=== PATIENT | female | born 1990 | race Caucasian/White ===

== ENCOUNTER → 2016-09-24 | Outpatient (REF) | payer BC | LOC: M LAB REF 15:04 | PROVIDERS: ATTEND Physician Assistant | DX: R50.9 Fever, unspecified (principal) ==

== ENCOUNTER → 2016-10-26 | Outpatient (REF) | payer BC | LOC: M LAB REF 12:30 | PROVIDERS: ATTEND Physician Assistant | DX: R50.9 Fever, unspecified (principal) ==

== ENCOUNTER 2017-07-18 20:53 | Emergency (ER) | payer BC ==
[~2017-07-18] VITALS: Ht 160 cm; Wt 57.7 kg
[~2017-07-18 20:53] MED LIST: METO5TAB2; ONDA4TAB6; PREN1CAP8 PO
[2017-07-18] MEDS ORDERED: NS 1,000 ML IV ONE (21:15)
[2017-07-18 21:41] LABS: BASO % 0.4 % (0.0-1.0); EOS # 0.1 10^3/uL (0.0-0.50); EOS % 2.1 % (0.0-3.0); IMMATURE GRANULOCYTE % 0.3 % (0-0); LYMPH # 1.4 10^3/uL (1.5-6.5); LYMPH % 20.6 % (24.0-44.0); MEAN CORPUSCULAR HEMOGLOBIN 29.3 pg (27.0-33.0); MEAN CORPUSCULAR HGB CONC 34.1 g/dl (32.0-36.5); MEAN CORPUSCULAR VOLUME 85.7 fl (80.0-96.0); MONO # 0.5 10^3/uL (0.0-0.8); MONO % 7.8 % (0.0-5.0); NEUTROPHILS # 4.7 10^3/uL (1.8-7.7); NEUTROPHILS % 68.8 % (36.0-66.0); PLATELET COUNT, AUTOMATED 201 10^3/uL (150-450); WHITE BLOOD COUNT 6.8 10^3/uL (4.0-10.0)
[2017-07-18 22:03] LABS: ANION GAP 9 MEQ/L (8-16); BLOOD UREA NITROGEN 11 MG/DL (7-18); CARBON DIOXIDE LEVEL 25 MEQ/L (21-32); CHLORIDE LEVEL 105 MEQ/L (98-107); CREATININE FOR GFR 0.59 MG/DL (0.55-1.02); GLOMERULAR FILTRATION RATE > 60.0 (>60); GLUCOSE, FASTING 80 MG/DL (70-105); SODIUM LEVEL 139 MEQ/L (136-145)
--- NOTE | 2017-07-18 22:10 | REPUSA ---
Clinical history: cramping. Findings: Real-time transabdominal ultrasound images of the pelvis were obtained. There is a single l daksha intrauterine . The crown rump length measures 7.7 cm. Abdominal circumference measures 6 .7 centimeters. Femur length measures 1.1 cm. Estimated weight is 70 g. heart rate measur es 153 bpm. There is no evidence of a subchorionic hemorrhage. There is no evidence of free fluid. Impression: 1. Single live intrauterine measuring 13 weeks 5 days, with estimated due date of 01/20/2018 .
[2017-07-18 23:07] VITALS: BP 123/63
== END 2017-07-18 23:50 | disposition home or self-care (01) ==
LOC: M ED 20:53
DX: O98.83 Other maternal infectious and parasitic diseases complicating the puerperium (principal); N89.8 Other specified noninflammatory disorders of vagina; Z3A.14 14 weeks gestation of pregnancy; Z87.891 Personal history of nicotine dependence; Z88.0 Allergy status to penicillin; Z88.1 Allergy status to other antibiotic agents

== ENCOUNTER → 2017-08-19 | Outpatient (CLI) | payer BC | LOC: M RAD 10:48 | DX: Z36.2 Encounter for other antenatal screening follow-up (principal) ==

== ENCOUNTER → 2017-09-08 | Outpatient (CLI) | payer BC | LOC: M RAD 10:03 | DX: Z34.82 Encounter for supervision of other normal pregnancy, second trimester (principal) ==

== ENCOUNTER 2017-09-14 01:11 | Outpatient (CLI) | payer BC | END 2017-09-14 02:19 | disposition home or self-care (01) | LOC: M LDO 01:11 | DX: O26.892 Other specified pregnancy related conditions, second trimester (principal); Z3A.22 22 weeks gestation of pregnancy; R10.2 Pelvic and perineal pain ==

== ENCOUNTER → 2017-09-19 | Outpatient (REF) | payer BC ==
[2017-09-19 20:22] LABS: INFLUENZA A AMPLIFICATION POSITIVE (NEGATIVE); INFLUENZA B AMPLIFICATION NEGATIVE (NEGATIVE); RSV AMPLIFICATION NEGATIVE (NEGATIVE)
== END ==
LOC: M LAB REF 18:58
DX: J11.1 Influenza due to unidentified influenza virus with other respiratory manifestations (principal)
CPT/HCPCS: 87631

== ENCOUNTER → 2017-10-16 | Outpatient (CLI) | payer BC | LOC: M RAD 08:07 | DX: Z36.2 Encounter for other antenatal screening follow-up (principal); Z3A.26 26 weeks gestation of pregnancy | CPT/HCPCS: 76816 ==

== ENCOUNTER → 2017-11-03 | Outpatient (CLI) | payer BC | LOC: M RAD 14:28 | DX: O36.5931 Maternal care for other known or suspected poor fetal growth, third trimester, fetus 1 (principal); Z3A.28 28 weeks gestation of pregnancy | CPT/HCPCS: 76819 ==

== ENCOUNTER → 2017-11-24 | Outpatient (CLI) | payer BC | LOC: M RAD 09:42 | DX: O36.5931 Maternal care for other known or suspected poor fetal growth, third trimester, fetus 1 (principal) | CPT/HCPCS: 76819 ==

== ENCOUNTER → 2017-12-01 | Outpatient (CLI) | payer BC | LOC: M RAD 09:59 | DX: O36.5931 Maternal care for other known or suspected poor fetal growth, third trimester, fetus 1 (principal); Z3A.33 33 weeks gestation of pregnancy | CPT/HCPCS: 76815 ==

== ENCOUNTER → 2017-12-08 | Outpatient (CLI) | payer BC | LOC: M RAD 10:16 | DX: O36.5931 Maternal care for other known or suspected poor fetal growth, third trimester, fetus 1 (principal) | CPT/HCPCS: 76815 ==

== ENCOUNTER → 2017-12-15 | Outpatient (CLI) | payer BC | LOC: M RAD 10:09 | DX: O36.5931 Maternal care for other known or suspected poor fetal growth, third trimester, fetus 1 (principal); Z3A.34 34 weeks gestation of pregnancy | CPT/HCPCS: 76819 ==

== ENCOUNTER 2017-12-17 14:47 | Outpatient (CLI) | payer BC | END 2017-12-17 17:00 | disposition home or self-care (01) | LOC: M LDO 14:47 | DX: Z36.89 Encounter for other specified antenatal screening (principal); Z3A.35 35 weeks gestation of pregnancy | CPT/HCPCS: 76815 ==

== ENCOUNTER → 2017-12-17 | Outpatient (CLI) | payer BC | LOC: M RAD 06:30 | DX: R10.11 Right upper quadrant pain (principal) | CPT/HCPCS: 76705 ==

== ENCOUNTER → 2017-12-22 | Outpatient (CLI) | payer BC | LOC: M RAD 10:05 | DX: O36.5931 Maternal care for other known or suspected poor fetal growth, third trimester, fetus 1 (principal) | CPT/HCPCS: 76815 ==

== ENCOUNTER → 2017-12-24 | Outpatient (REF) | payer BC | LOC: M LAB REF 16:57 | DX: Z34.83 Encounter for supervision of other normal pregnancy, third trimester (principal) ==

== ENCOUNTER → 2017-12-29 | Outpatient (CLI) | payer BC | LOC: M RAD 10:08 | DX: O36.5931 Maternal care for other known or suspected poor fetal growth, third trimester, fetus 1 (principal); Z36.89 Encounter for other specified antenatal screening; Z3A.36 36 weeks gestation of pregnancy | CPT/HCPCS: 76815 ==

== ENCOUNTER → 2018-01-06 | Outpatient (CLI) | payer BC | LOC: M RAD 10:03 | DX: O36.5931 Maternal care for other known or suspected poor fetal growth, third trimester, fetus 1 (principal); Z3A.38 38 weeks gestation of pregnancy | CPT/HCPCS: 76819 ==

== ENCOUNTER 2018-01-10 12:46 | Inpatient (IN) | payer BC ==
[2018-01-10] MEDS: ONDANSETRON 4 MG ORAL DISINTEGRATING TAB (Q0162 PER 1MG) SL (13:34)
[2018-01-10] MEDS: LR 1,000 ML IV (16:02)
[2018-01-10] MEDS: PROMETHAZINE INJ 25 MG/ML VIAL (J2550) IV (16:02)
[2018-01-10 16:31] LABS: HEMATOCRIT 34.6 % (36.0-47.0); MEAN CORPUSCULAR HEMOGLOBIN 26.6 pg (27.0-33.0); MEAN CORPUSCULAR HGB CONC 31.8 g/dl (32.0-36.5); MEAN CORPUSCULAR VOLUME 83.6 fl (80.0-96.0); PLATELET COUNT, AUTOMATED 172 10^3/uL (150-450); RED BLOOD COUNT 4.14 10^6/uL (4.00-5.40); RED CELL DISTRIBUTION WIDTH 13.2 % (11.5-14.5); WHITE BLOOD COUNT 12.6 10^3/uL (4.0-10.0)
[2018-01-10] MEDS ORDERED: LR 1,000 ML IV (16:47)
[2018-01-10] MEDS: VANCOMYCIN HCL 1,000 MG, VIAL MATE ADAPTER 1 EACH in D5W 250 ML IV (17:11)
[2018-01-10] MEDS ORDERED: FENTANYL 2MCG/ML ROPIVACAINE 0.2% IN 0.9% NACL 200ML IVBAG As Ordered (17:33)
[2018-01-10] MEDS ORDERED: EPIDURAL COMMENT XX (19:00)
[2018-01-10] MEDS ORDERED: NALOXONE INJ 0.4 MG/1 ML VIAL (J2310) IV (19:00)
[2018-01-10] MEDS ORDERED: REFRIGERATOR IV KEYS XX (19:00)
[2018-01-10] MEDS ORDERED: EPIDURAL/PCA KEYS XX (19:00)
[2018-01-10] MEDS ORDERED: diphenhydrAMINE INJ 50MG/ML VIAL (J1200) IV (19:00)
[2018-01-10] MEDS ORDERED: FENTANYL/ROPIVACAINE/NACL BAG 200 ML EPIDURAL (19:00)
[2018-01-10] MEDS ORDERED: ePHEDrine SULFATE 25 MG/5 ML(5MG/ML) SYRINGE IV (19:00)
[2018-01-10] MEDS ORDERED: LACTATED RINGER'S 1000 ML IV (19:00)
[2018-01-10] MEDS: ONDANSETRON 4MG/2ML VIAL (J2405) IV (21:39)
[2018-01-10] MEDS ORDERED: OXYTOCIN 30 UNITS IN 0.9% NaCl 500ML IV BAG (J2590) As Ordered (21:45)
[2018-01-10] MEDS ORDERED: ONDANSETRON 4MG/2ML VIAL (J2405) IV (21:45)
[2018-01-10] MEDS ORDERED: FAMOTIDINE 20 MG TAB As Ordered (21:55)
[2018-01-10] MEDS: FAMOTIDINE 20 MG TAB PO (22:13)
[2018-01-10] MEDS: LACTATED RINGER'S 1000 ML IV (22:14)
[2018-01-10] MEDS: OXYTOCIN DRIP 30 UNITS in APPROPRIATE DILUENT 1 EA IV (22:14)
[2018-01-11] MEDS ORDERED: LR 1,000 ML IV (03:29)
[2018-01-11] MEDS: OXYTOCIN DRIP 30 UNITS in APPROPRIATE DILUENT 1 EA IV (03:29)
[2018-01-11] MEDS ORDERED: DIBUCAINE 1% OINTMENT 30GM TOP (03:30)
[2018-01-11] MEDS ORDERED: PROMETHAZINE 25 MG TAB PO (03:30)
[2018-01-11] MEDS ORDERED: ONDANSETRON 4MG/2ML VIAL (J2405) IV (03:30)
[2018-01-11] MEDS ORDERED: DOCUSATE SODIUM 100 MG CAP PO (03:30)
[2018-01-11] MEDS: ACETAMINOPHEN 500 MG TAB PO ×2 (03:59→12:27)
[2018-01-11] MEDS: IBUPROFEN 800 MG TAB PO ×3 (06:05→21:54)
[2018-01-11] MEDS: PRENATAL VITAMINS CHEWABLE TABLET PO (10:28)
[2018-01-11] MEDS: MEASLES,MUMPS,RUBELLA VACCINE INJ (MMR-II) (90707) SC (13:12)
[2018-01-11] MEDS: RHOGAM 300 MCG (1500 IU) INJ (J2790) IM (13:12)
[2018-01-12] MEDS: PRENATAL VITAMINS CHEWABLE TABLET PO (07:58)
[2018-01-12] MEDS: IBUPROFEN 800 MG TAB PO (07:58)
== END 2018-01-12 10:02 | disposition home or self-care (01) | DRG 560 ==
LOC: M LDO 12:46 → M OBS 01-11 05:55 → M LDI 16:42
PROVIDERS: Obstetrics & Gynecology
PROC: 10E0XZZ Delivery of Products of Conception, External Approach (ICD-10-PCS; principal; 2018-01-11)
PROC: 0HQ9XZZ Repair Perineum Skin, External Approach (ICD-10-PCS; 2018-01-11)
DX: O34.211 Maternal care for low transverse scar from previous cesarean delivery (principal); O99.824 Streptococcus B carrier state complicating childbirth; Z37.0 Single live birth; Z3A.39 39 weeks gestation of pregnancy; Z88.0 Allergy status to penicillin; Z88.1 Allergy status to other antibiotic agents; O70.0 First degree perineal laceration during delivery

== ENCOUNTER → 2019-05-14 | Outpatient (REF) | payer BC ==
[~2019-05-14] MED LIST changes: +COLA100C5 PO; +IBUP-1114 PO; +MAALSUS20 PO; +MAPA500T2 PO; +METO5TAB2 PO; +PYRI25TA2 PO; +ZANT150T15 PO; +ZITH250T PO
== END ==
LOC: M LAB REF 16:51
PROVIDERS: ATTEND Advanced Practice Midwife
DX: Z12.4 Encounter for screening for malignant neoplasm of cervix (principal)

== ENCOUNTER 2019-06-06 06:58 | Emergency (ER) | payer BC ==
[~2019-06-06] VITALS: Ht 160 cm; Wt 68.7 kg
[~2019-06-06 06:58] MED LIST changes: -METO5TAB2 PO; -PYRI25TA2 PO
[2019-06-06] MEDS ORDERED: METO5TAB2 PO (07:08)
[2019-06-06] MEDS ORDERED: PYRI25TA2 PO (07:08)
[2019-06-06] MEDS ORDERED: NS 1,000 ML IV ONE (07:30)
[2019-06-06 07:36] LABS: BASO % 0.6 % (0.0-1.0); EOS # 0.3 10^3/uL (0.0-0.5); LYMPH # 1.4 10^3/uL (1.5-5.0); LYMPH % 26.3 % (24.0-44.0); MEAN CORPUSCULAR HEMOGLOBIN 30.3 pg (27.0-33.0); MEAN CORPUSCULAR HGB CONC 33.3 g/dl (32.0-36.5); MEAN CORPUSCULAR VOLUME 90.9 fl (80.0-96.0); MONO # 0.6 10^3/uL (0.0-0.8); MONO % 12.3 % (0.0-5.0); NEUTROPHILS # 2.9 10^3/uL (1.5-8.5); NEUTROPHILS % 55.6 % (36.0-66.0); PLATELET COUNT, AUTOMATED 183 10^3/uL (150-450); RED BLOOD COUNT 4.62 10^6/uL (4.00-5.40); WHITE BLOOD COUNT 5.2 10^3/uL (4.0-10.0)
[2019-06-06 08:00] LABS: ALBUMIN 3.8 GM/DL (3.2-5.2); ALT/SGPT 39 U/L (12-78); BILIRUBIN,TOTAL 0.3 MG/DL (0.2-1.0); BLOOD UREA NITROGEN 10 MG/DL (7-18); CALCIUM LEVEL 8.6 MG/DL (8.5-10.1); CARBON DIOXIDE LEVEL 24 MEQ/L (21-32); CHLORIDE LEVEL 111 MEQ/L (98-107); CREATININE FOR GFR 0.73 MG/DL (0.55-1.30); GLOMERULAR FILTRATION RATE > 60.0 (>60); GLUCOSE, FASTING 100 MG/DL (70-100); POTASSIUM SERUM 4.4 MEQ/L (3.5-5.1); SODIUM LEVEL 141 MEQ/L (136-145); TOTAL PROTEIN 6.9 GM/DL (6.4-8.2)
[2019-06-06 08:52] LABS: HCG, SERUM QUANTITATIVE 2537 MIU/ML
[2019-06-06 09:39] VITALS: BP 110/59
--- NOTE | 2019-06-06 09:43 | REP ---
FIRST TRIMESTER ULTRASOUND: Real-time sonographic evaluation of pelvis performed utilizing transabdominal and endovaginal technique. The uterus measures 7.6 x 4.1 x 4.3 cm. Endometrial thickness is 11 mm. In the cervix, there is a small oval area of fluid with surrounding echogenic band which may represent an irregular gestational sac. No gestational sac is seen in the endometrial cavity. Right ovary measures 2.7 x 1.9 x 2.3 cm and left ovary 1.8 x 1.3 x 1.7 cm. Complex follicle in the right ovary measures 1.6 cm in diameter. There is no torsion bilaterally, RI right ovary 0.44 and left ovary 0.50. There is mild free fluid in the cul-de-sac. Differential diagnosis would include missed or in progress, less likely very early intrauterine gestational sac or ectopic . Suggest correlation with serial quantitative beta hCG values and followup ultrasound as necessary. Electronically Signed by Gian Contreras MD 06/06/2019 12:27 P
[2019-06-06 10:10] LABS: CHLAMYDIA DNA AMPLIFICATION NEGATIVE (NEGATIVE); GC DNA AMPLIFICATION NEGATIVE (NEGATIVE)
== END 2019-06-06 09:41 | disposition home or self-care (01) ==
LOC: M ED 06:58
DX: O20.0 Threatened abortion (principal); O34.80 Maternal care for other abnormalities of pelvic organs, unspecified trimester; Z79.899 Other long term (current) drug therapy; Z88.1 Allergy status to other antibiotic agents; Z88.8 Allergy status to other drugs, medicaments and biological substances

== ENCOUNTER → 2019-06-08 | Outpatient (CLI) | payer BC ==
[~2019-06-08] MED LIST changes: +METO5TAB2 PO; +PYRI25TA2 PO
== END ==
LOC: M LAB 15:01
PROVIDERS: ATTEND Obstetrics & Gynecology
DX: O20.0 Threatened abortion (principal); Z3A.00 Weeks of gestation of pregnancy not specified

== ENCOUNTER → 2019-06-16 | Outpatient (CLI) | payer BC | LOC: M LAB 10:22 | PROVIDERS: ATTEND Advanced Practice Midwife | DX: O03.9 Complete or unspecified spontaneous abortion without complication (principal) ==

== ENCOUNTER → 2019-12-14 | Outpatient (REF) | payer BC ==
[2019-12-15 12:04] LABS: CHLAMYDIA DNA AMPLIFICATION NEGATIVE (NEGATIVE); GC DNA AMPLIFICATION NEGATIVE (NEGATIVE)
== END ==
LOC: M SFHCWAGY 10:09
PROVIDERS: ATTEND Advanced Practice Midwife
DX: N94.10 Unspecified dyspareunia (principal)

== ENCOUNTER → 2019-12-23 | Outpatient (CLI) | payer BC ==
--- NOTE | 2019-12-24 03:22 | REP ---
Clinical: Dyspareunia . Technique: Transabdominal pelvic ultrasound followed by transvaginal examination for better evaluation of the endometrium and adnexa with color Doppler evaluation of the ovaries. Findings: Bladder is unremarkable and measures 9.3 x 8.9 x 8.0 cm . Normal anteverted uterus measures 7.7 x 3.6 x 4.1 cm . The endometrial complex measures 5.0 mm thickness. No discrete uterine or endometrial abnormalities are appreciated. Bilateral ovaries are normal in appearance and vascularity without evidence for torsion. Right ovary measures 2.9 x 1.8 x 2.5 cm ; R I = 0.50 . Left ovary measures 2.0 x 1.5 x 1.5 cm ; R I = 0.67 . No pelvic fluid or adnexal mass lesion . Impression: 1. normal pelvic ultrasound
== END ==
LOC: M WHC 13:58
PROVIDERS: ATTEND Advanced Practice Midwife
DX: N94.10 Unspecified dyspareunia (principal)

== ENCOUNTER → 2020-02-17 | Outpatient (REF) | payer BC | LOC: M LAB REF 12:06 | PROVIDERS: ATTEND Physician Assistant | DX: R30.0 Dysuria (principal) ==

== ENCOUNTER → 2020-04-30 | Outpatient (REF) | payer BC ==
[2020-04-30 15:10] LABS: APPEARANCE, URINE HAZY (CLEAR); BACTERIA, URINE AUTO 1+ (NEGATIVE); BILIRUBIN, URINE AUTO NEGATIVE (NEGATIVE); BLOOD, URINE BLOOD NEGATIVE (NEGATIVE); COLOR, URINE YELLOW (YELLOW); GLUCOSE, URINE (UA) AUTO NEGATIVE (NEGATIVE); KETONE, URINE AUTO NEGATIVE (NEGATIVE); LEUKOCYTE ESTERASE, URINE AUTO 1+ (NEGATIVE); MUCUS, URINE SMALL (NEGATIVE); NITRITE, URINE AUTO NEGATIVE (NEGATIVE); PROTEIN, URINE AUTO NEGATIVE (NEGATIVE); RBC, URINE AUTO 1 /HPF (0-3); SPECIFIC GRAVITY URINE AUTO 1.018 (1.002-1.035); SQUAMOUS EPITHELIAL CELL UR AU 2 /HPF (0-6); UROBILINOGEN, URINE AUTO 0.2 mg/dL (0.0-2.0); WBC, URINE AUTO 17 /HPF (0-3)
== END ==
LOC: M LAB REF 14:52
PROVIDERS: ATTEND Physician Assistant Medical
DX: N39.0 Urinary tract infection, site not specified (principal)

== ENCOUNTER → 2020-08-19 | Outpatient (CLI) | payer BC | LOC: M LABSMTC 12:24 | PROVIDERS: ATTEND Family Medicine | DX: Z20.822 Contact with and (suspected) exposure to COVID-19 (principal) ==

== ENCOUNTER → 2020-10-31 | Outpatient (CLI) | payer BC ==
[2020-10-31 12:29] LABS: BASO % 0.6 % (0.0-1.0); EOS # 0.1 10^3/uL (0.0-0.5); EOS % 1.9 % (0.0-3.0); HEMATOCRIT 41.7 % (36.0-47.0); HEMOGLOBIN 13.7 g/dl (12.0-15.5); LYMPH # 1.9 10^3/uL (1.5-5.0); LYMPH % 27.7 % (24.0-44.0); MEAN CORPUSCULAR HEMOGLOBIN 29.7 pg (27.0-33.0); MEAN CORPUSCULAR HGB CONC 32.9 g/dl (32.0-36.5); MEAN CORPUSCULAR VOLUME 90.5 fl (80.0-96.0); MONO # 0.5 10^3/uL (0.0-0.8); MONO % 7.4 % (2.0-8.0); NEUTROPHILS # 4.3 10^3/uL (1.5-8.5); PLATELET COUNT, AUTOMATED 238 10^3/uL (150-450); RED BLOOD COUNT 4.61 10^6/uL (4.00-5.40)
[2020-10-31 12:51] LABS: HCG, SERUM QUALITATIVE NEGATIVE (NEGATIVE)
[2020-10-31 13:03] LABS: ALT/SGPT 30 U/L (12-78); BILIRUBIN,TOTAL 0.4 MG/DL (0.2-1.0); BLOOD UREA NITROGEN 13 MG/DL (7-18); CALCIUM LEVEL 9.5 MG/DL (8.5-10.1); CARBON DIOXIDE LEVEL 28 MEQ/L (21-32); CHLORIDE LEVEL 104 MEQ/L (98-107); CREATININE FOR GFR 0.77 MG/DL (0.55-1.30); GLOMERULAR FILTRATION RATE > 60.0 (>60); GLUCOSE, FASTING 73 MG/DL (70-100); POTASSIUM SERUM 4.4 MEQ/L (3.5-5.1); SODIUM LEVEL 137 MEQ/L (136-145); THYROID STIMULATING HORMONE 0.899 uIU/ML (0.358-3.740); TOTAL PROTEIN 7.2 GM/DL (6.4-8.2)
== END ==
LOC: M LAB 11:31
PROVIDERS: ATTEND Family Medicine
DX: T83.39XA Other mechanical complication of intrauterine contraceptive device, initial encounter (principal); R60.0 Localized edema

== ENCOUNTER → 2021-07-17 | Outpatient (CLI) | payer BC ==
--- NOTE | 2021-07-17 20:41 | REPVR ---
PROCEDURE INFORMATION: Exam: MR Cervical Spine Without Contrast Exam date and time: 07/17/2021 10:50 AM Age: 31 years old Clinical indication: Pain; Cervicalgia; Additional info: Cervicalgia, R/O stenosis vs hnp TECHNIQUE: Imaging protocol: Multiplanar magnetic resonance images of the cervical spine without contrast. COMPARISON: No relevant prior studies available. FINDINGS: Cervical vertebral body heights are intact. Straightening of the cervical lordosis. The dens is intact. No abnormal marrow signal. No cord compression, expansion, or abnormal cord signal. Visualized structures of the posterior fossa are unremarkable. Soft tissues are unremarkable. C2-C3: No significant canal or foraminal narrowing. C3-C4: Uncovertebral spurring causes mild to moderate right and mild left foraminal narrowing. Minimal posterior disc protrusion without significant canal narrowing. C4-C5: Minimal posterior disc protrusion without significant canal narrowing. No significant neural foraminal narrowing. C5-C6: Slight posterior disc protrusion and uncovertebral spurring cause mild to moderate right and moderate to severe left foraminal narrowing. No significant canal narrowing. C6-C7: No significant canal or foraminal narrowing. C7-T1: No significant canal or foraminal narrowing. IMPRESSION: Multilevel spondylotic changes of the cervical spine, including moderate to severe left neural foraminal narrowing at C5-C6, as detailed above. Electronically signed by: Jarred Guzman On 07/17/2021 20:40:47 PM
== END ==
LOC: M RAD 09:19
PROVIDERS: ATTEND Physician Assistant
DX: M50.221 Other cervical disc displacement at C4-C5 level (principal); M50.222 Other cervical disc displacement at C5-C6 level; M47.812 Spondylosis without myelopathy or radiculopathy, cervical region

== ENCOUNTER → 2021-11-27 | Outpatient (CLI) | payer BC ==
[2021-11-27 14:12] LABS: ALBUMIN 4.2 GM/DL (3.2-5.2); ALT/SGPT 34 U/L (12-78); BILIRUBIN,TOTAL 1.1 MG/DL (0.2-1.0); BLOOD UREA NITROGEN 14 MG/DL (7-18); CALCIUM LEVEL 9.2 MG/DL (8.5-10.1); CARBON DIOXIDE LEVEL 30 MEQ/L (21-32); CHLORIDE LEVEL 108 MEQ/L (98-107); CREATININE FOR GFR 0.84 MG/DL (0.55-1.30); GLOMERULAR FILTRATION RATE > 60.0 (>60); GLUCOSE, FASTING 84 MG/DL (70-100); RHEUMATOID FACTOR QUANT < 10.0 IU/ML (<15.0); SODIUM LEVEL 139 MEQ/L (136-145); TOTAL PROTEIN 7.1 GM/DL (6.4-8.2)
[2021-11-27 14:55] LABS: BASO % 0.4 % (0.0-1.0); EOS # 0.1 10^3/uL (0.0-0.5); EOS % 1.5 % (0.0-3.0); HEMATOCRIT 41.7 % (36.0-47.0); HEMOGLOBIN 13.5 g/dl (12.0-15.5); LYMPH # 1.4 10^3/uL (1.5-5.0); LYMPH % 17.5 % (24.0-44.0); MEAN CORPUSCULAR HGB CONC 32.4 g/dl (32.0-36.5); MEAN CORPUSCULAR VOLUME 89.7 fl (80.0-96.0); MONO # 0.4 10^3/uL (0.0-0.8); MONO % 5.6 % (2.0-8.0); NEUTROPHILS # 5.9 10^3/uL (1.5-8.5); NEUTROPHILS % 74.7 % (36.0-66.0); PLATELET COUNT, AUTOMATED 222 10^3/uL (150-450); RED BLOOD COUNT 4.65 10^6/uL (4.00-5.40); WHITE BLOOD COUNT 7.9 10^3/uL (4.0-10.0)
[2021-11-28 14:10] LABS: ANTINUCLEAR ANTIBODIES DIRECT Negative (Negative)
== END ==
LOC: M LAB 12:45
PROVIDERS: ATTEND Nurse Practitioner Family
DX: R53.83 Other fatigue (principal); R21 Rash and other nonspecific skin eruption

== ENCOUNTER → 2021-11-28 | Outpatient (CLI) | payer BC ==
[2021-11-28 14:40] LABS: INR 0.96; PROTHROMBIN TIME 13.2 SECONDS (12.7-14.5)
[2021-11-28 15:03] LABS: PERCENT SATURATION 35.5 % (13.2-45.0); THYROID STIMULATING HORMONE 0.849 uIU/ML (0.358-3.740)
== END ==
LOC: M LAB 13:39
PROVIDERS: ATTEND Nurse Practitioner Family
DX: R23.3 Spontaneous ecchymoses (principal); R21 Rash and other nonspecific skin eruption

== ENCOUNTER → 2021-11-30 | Outpatient (CLI) | payer BC ==
[2021-11-30 13:31] LABS: THYROID STIMULATING HORMONE 0.735 uIU/ML (0.358-3.740); THYROXINE (T4) 4.9 UG/DL (4.5-12.0)
[2021-11-30 13:32] LABS: TOTAL T3 109.1 NG/DL (60.0-181.0)
[2021-12-03 15:07] LABS: COMPLEMENT TOTAL (CH50) > 60 U/mL (>41); THRYOGLOBULIN ANTIBODIES (ATA) < 1.0 IU/mL (0.0-0.9); THYROGLOBULIN QUANTITATIVE 9.9 ng/mL (1.5-38.5)
== END ==
LOC: M LAB 11:58
PROVIDERS: ATTEND Allergy & Immunology Allergy
DX: R21 Rash and other nonspecific skin eruption (principal)

== ENCOUNTER → 2022-04-19 | Outpatient (CLI) | payer BC ==
[2022-04-19 10:30] LABS: BASO % 0.7 % (0.0-1.0); EOS # 0.3 10^3/uL (0.0-0.5); EOS % 5.2 % (0.0-3.0); HEMATOCRIT 42.8 % (36.0-47.0); HEMOGLOBIN 13.8 g/dl (12.0-15.5); LYMPH # 1.7 10^3/uL (1.5-5.0); LYMPH % 29.9 % (24.0-44.0); MEAN CORPUSCULAR HEMOGLOBIN 29.5 pg (27.0-33.0); MEAN CORPUSCULAR HGB CONC 32.2 g/dl (32.0-36.5); MEAN CORPUSCULAR VOLUME 91.5 fl (80.0-96.0); MONO # 0.4 10^3/uL (0.0-0.8); MONO % 6.9 % (2.0-8.0); NEUTROPHILS # 3.3 10^3/uL (1.5-8.5); NEUTROPHILS % 57.1 % (36.0-66.0); PLATELET COUNT, AUTOMATED 282 10^3/uL (150-450); RED BLOOD COUNT 4.68 10^6/uL (4.00-5.40); WHITE BLOOD COUNT 5.8 10^3/uL (4.0-10.0)
[2022-04-19 11:02] LABS: ERYTHROCYTE SEDIMENTATION RATE 8 mm/hr (0-20)
[2022-04-19 11:07] LABS: ALBUMIN 4.2 GM/DL (3.2-5.2); ALT/SGPT 23 U/L (12-78); BILIRUBIN,TOTAL 0.6 MG/DL (0.2-1.0); BLOOD UREA NITROGEN 12 MG/DL (7-18); CALCIUM LEVEL 9.6 MG/DL (8.5-10.1); CARBON DIOXIDE LEVEL 28 MEQ/L (21-32); CHLORIDE LEVEL 105 MEQ/L (98-107); CREATININE FOR GFR 0.97 MG/DL (0.55-1.30); FERRITIN 70 NG/ML (8-252); FREE T4 0.99 NG/DL (0.76-1.46); GLOMERULAR FILTRATION RATE > 60.0 (>60); GLUCOSE, FASTING 101 MG/DL (70-100); IRON (FE) 91 UG/DL (50-170); MAGNESIUM LEVEL 2.2 MG/DL (1.8-2.4); PERCENT SATURATION 30.5 % (13.2-45.0); POTASSIUM SERUM 5.3 MEQ/L (3.5-5.1); SODIUM LEVEL 137 MEQ/L (136-145); TOTAL IRON BINDING CAPACITY 298 UG/DL (250-450); TOTAL PROTEIN 7.3 GM/DL (6.4-8.2)
[2022-04-19 11:34] LABS: TOTAL 25(OH) VITAMIN D 39.3 NG/ML (30.0-100.0)
[2022-04-21 13:07] LABS: FOLATE 9.7 ng/mL (>3.0); VITAMIN B12 LEVEL 659 pg/mL (232-1245)
[2022-04-22 15:07] LABS: ANTINUCLEAR ANTIBODIES DIRECT Negative (Negative)
== END ==
LOC: M LAB 09:38
PROVIDERS: ATTEND Nurse Practitioner Family
DX: R53.83 Other fatigue (principal)

== ENCOUNTER → 2022-08-01 | Outpatient (CLI) | payer BC ==
[2022-08-01 10:54] LABS: HCG, SERUM QUANTITATIVE < 2.6 MIU/ML (<4.2)
[2022-08-01 10:55] LABS: HCG, SERUM QUALITATIVE NEGATIVE (NEGATIVE)
== END ==
LOC: M LAB 09:28
PROVIDERS: ATTEND Nurse Practitioner Family
DX: R11.0 Nausea (principal)

== ENCOUNTER → 2022-08-30 | Outpatient (CLI) | payer BC ==
[2022-08-30 12:06] LABS: BASO % 0.5 % (0.0-1.0); EOS # 0.2 10^3/uL (0.0-0.5); EOS % 2.2 % (0.0-3.0); HEMATOCRIT 43.2 % (36.0-47.0); HEMOGLOBIN 13.9 g/dl (12.0-15.5); LYMPH # 2.2 10^3/uL (1.5-5.0); LYMPH % 27.8 % (24.0-44.0); MEAN CORPUSCULAR HGB CONC 32.2 g/dl (32.0-36.5); MONO # 0.6 10^3/uL (0.0-0.8); MONO % 8.2 % (2.0-8.0); NEUTROPHILS # 4.7 10^3/uL (1.5-8.5); PLATELET COUNT, AUTOMATED 264 10^3/uL (150-450); WHITE BLOOD COUNT 7.8 10^3/uL (4.0-10.0)
[2022-08-30 12:36] LABS: ALBUMIN 4.3 G/DL (3.2-5.2); ALKALINE PHOSPHATASE 70 U/L (46-116); ALT/SGPT 18 U/L (7.0-40); AST/SGOT 14 U/L (<34); BILIRUBIN,TOTAL 0.7 MG/DL (0.3-1.2); BLOOD UREA NITROGEN 15 MG/DL (9-23); CALCIUM LEVEL 9.5 MG/DL (8.5-10.1); CARBON DIOXIDE LEVEL 28 MMOL/L (20-31); CHLORIDE LEVEL 105 MMOL/L (98-107); CREATININE FOR GFR 0.91 MG/DL (0.55-1.30); GLOMERULAR FILTRATION RATE > 60.0 (>60); GLUCOSE, FASTING 69 MG/DL (60-100); POTASSIUM SERUM 4.5 MMOL/L (3.5-5.1); SODIUM LEVEL 140 MMOL/L (136-145); TOTAL PROTEIN 7.1 G/DL (5.7-8.2)
== END ==
LOC: M RAD 11:19
PROVIDERS: ATTEND Nurse Practitioner Family
DX: R10.31 Right lower quadrant pain (principal)

== ENCOUNTER 2022-10-13 19:44 | Emergency (ER) | payer BC ==
[~2022-10-13] VITALS: Ht 160 cm; Wt 58.5 kg
[2022-10-13 19:45] VITALS: BP 122/68
[2022-10-13] MEDS ORDERED: DEXA4TA PO (20:33)
[2022-10-13] MEDS ORDERED: AZIT500T5 PO (20:33)
== END 2022-10-13 20:50 | disposition home or self-care (01) ==
LOC: M ED 19:44
DX: J03.00 Acute streptococcal tonsillitis, unspecified (principal); Z79.899 Other long term (current) drug therapy; Z88.8 Allergy status to other drugs, medicaments and biological substances; Z88.0 Allergy status to penicillin

== ENCOUNTER → 2025-05-13 | Outpatient (CLI) | payer BC ==
[~2025-05-13] MED LIST changes: +AZIT500T5 PO; +DEXA4TA PO; +ONDA-282; -ONDA4TAB6
[2025-05-13 09:38] LABS: BASO # 0.1 10^3/uL (0.0-0.2); BASO % 0.9 % (0.0-1.0); EOS # 0.2 10^3/uL (0.0-0.5); EOS % 3.4 % (0.0-3.0); LYMPH # 1.8 10^3/uL (1.5-5.0); LYMPH % 31.1 % (24.0-44.0); MONO # 0.4 10^3/uL (0.0-0.8); MONO % 7.5 % (2.0-8.0); NEUTROPHILS # 3.4 10^3/uL (1.5-8.5); NEUTROPHILS % 56.9 % (36.0-66.0); PLATELET COUNT, AUTOMATED 235 10^3/uL (150-450)
[2025-05-13 09:53] LABS: ALT/SGPT 15.0 U/L (7.0-40); AST/SGOT 21.0 U/L (<34); CALCIUM LEVEL 9.3 MG/DL (8.5-10.1); CARBON DIOXIDE LEVEL 28.0 MMOL/L (20-31); CHLORIDE LEVEL 105.0 MMOL/L (98-107); CREATININE FOR GFR 0.91 MG/DL (0.55-1.30); GLOMERULAR FILTRATION RATE 84.9 (>60); IRON (FE) 124.0 UG/DL (50-170); MAGNESIUM LEVEL 1.7 MG/DL (1.8-2.4); POTASSIUM SERUM 4.4 MMOL/L (3.5-5.1); SODIUM LEVEL 140.0 MMOL/L (136-145)
[2025-05-13 09:54] LABS: PERCENT SATURATION 45.6 % (13.2-45.0)
[2025-05-13 09:56] LABS: FREE T4 1.34 NG/DL (0.89-1.76)
== END ==
LOC: M LAB 08:34
PROVIDERS: ATTEND Nurse Practitioner Family
DX: R55 Syncope and collapse (principal)